=== PATIENT | female | born 1965 | race Caucasian/White ===

== ENCOUNTER 2016-07-17 19:45 | Emergency (ER) | payer BC ==
[2016-07-17 20:25] VITALS: BP 141/76
[2016-07-17] MEDS ORDERED: Azithromycin TAB* 250 MG PO ONE (20:53)
[2016-07-17] MEDS ORDERED: Benzonatate CAP* 100 MG PO ONE (20:54)
--- NOTE | 2016-07-17 21:06 | UC ---
Respiratory Complaint HPI - HPI Summary HPI Summary: 51 YO FEMALE WITH COUGH X 5-7 DAYS NO RUNNY NOSE NO F/C - History of Current Complaint Chief Complaint: UCRespiratory Stated Complaint: COUGH Time Seen by Provider: 07/17/16 20:48 Hx Last Menstrual Period: 3 WKS AGO Onset/Duration: Lasting Days Timing: Constant Severity Initially: Moderate Severity Currently: Moderate Pain Intensity: 2 Pain Scale Used: 0-10 Numeric Character: Cough: Nonproductive Aggravating Factors: Exertion, Deep Breaths Alleviating Factors: Nothing - Allergies/Home Medications Allergies/Adverse Reactions: Allergies Allergy/AdvReac Type Severity Reaction Status Date / Time Ampicillin Allergy Intermediate Hives Verified 07/17/16 20:18 Cephalexin AdvReac Joint Pain Verified 07/17/16 20:18 Home Medications: Home Medications Escitalopram (NF) [Lexapro (NF)] 1 tab DAILY 07/17/16 [History Confirmed ] amLODIPine TAB* [Norvasc 5 mg TAB*] 10 mg PO DAILY 07/17/16 [History Confirmed 07/17/16] PMH/Surg Hx/FS Hx/Imm Hx Previously Healthy: Yes Endocrine History Of: Denies: Diabetes, Thyroid Disease, Hyperthyroidism, Hypothyroidism, Dyslipidemia Cardiovascular History Of: Reports: Hypertension Denies: Cardiac Disorders, Pacemaker/ICD, Myocardial Infarction, Congestive Heart Failure, Atrial Fibrillation, Deep Vein Thrombosis, Bleeding Disorders Respiratory History Of: Denies: COPD, Asthma, Bronchitis, Pneumonia, Pulmonary Embolism GI/ History Of: Denies: Gastroesophageal Reflux, Ulcer, Gastrointestinal Bleed, Gall Bladder Disease, Kidney Stones, Diverticulitis, Renal Disease, Urosepsis Neurological History Of: Denies: TIA, CVA, Dementia, Seizures, Migraine Psychological History Of: Reports: Anxiety Denies: Depression, Bipolar Disorder, Schizophrenia, Post Traumatic Stress Disorder Cancer History Of: Denies: Lung Cancer, Colorectal Cancer, Breast Cancer, Prostate Cancer, Cervical Cancer Other History Of: Negative For: HIV, Hepatitis B, Hepatitis C - Surgical History Surgical History: Yes Surgery Procedure, Year, and Place: c-sections x 3, R carpel tunnel, L knee - Family History Known Family History: Positive: Cardiac Disease, Hypertension, Diabetes Negative: Renal Disease, Blood Disorder - Social History Alcohol Use: Weekly Alcohol Amount: 2-3 daily Substance Use Type: None Smoking Status (MU): Never Smoked Tobacco - Immunization History Most Recent Influenza Vaccination: 2016 Most Recent Tetanus Shot: UTD Most Recent Pneumonia Vaccination: N/A Review of Systems Constitutional: Negative Skin: Negative Eyes: Negative ENT: Negative Respiratory: Cough Cardiovascular: Negative Gastrointestinal: Negative Genitourinary: Negative Motor: Negative Neurovascular: Negative Musculoskeletal: Negative Neurological: Negative Psychological: Negative All Other Systems Reviewed And Are Negative: Yes Physical Exam Triage Information Reviewed: Yes Appearance: Well-Appearing, No Pain Distress Vital Signs: Initial Vital Signs Temp 98.3 F 07/17/16 20:23 Pulse 76 07/17/16 20:23 Resp 18 07/17/16 20:23 BP 141/76 07/17/16 20:23 Pulse Ox 99 07/17/16 20:23 Vital Signs Reviewed: Yes Eyes: Positive: Conjunctiva Clear ENT: Positive: Hearing grossly normal, Pharynx normal, TMs normal. Negative: Nasal congestion, Nasal drainage, Tonsillar exudate, Trismus, Muffled/hoarse voice Dental: Negative: Abscess @ Neck: Positive: Supple, Nontender, No Lymphadenopathy Respiratory: Positive: No respiratory distress, No accessory muscle use, Wheezing - WITH FORCED EXPIRATION Cardiovascular: Positive: RRR, No Murmur Abdomen Description: Positive: Nontender, No Organomegaly Musculoskeletal: Positive: ROM Intact, No Edema Neurological: Positive: Alert Psychological Exam: Normal Skin Exam: Normal UC Diagnostic Evaluation - Laboratory O2 Sat by Pulse Oximetry: 99 - NORMAL/NOT HYPOXIC Respiratory Course/Dx - Differential Dx/Diagnosis Provider Diagnoses: ACUTE BRONCHITIS Discharge - Discharge Plan Condition: Stable Disposition: HOME Prescriptions: Azithromycin TAB* [Zithromax TAB (Z-YASMINE) 250 mg #6 tabs] 250 mg PO DAILY #4 tab Benzonatate CAP* [Tessalon 100 MG CAP*] 100 - 200 mg PO TID PRN #28 cap PRN Reason: Cough Patient Education Materials: Acute Bronchitis (ED) Referrals: Jaycee Musa MD [Primary Care Provider] - 5 Days (IF NOT BETTER I SUGGEST A BP RECHECK IN 5-10 DAYS)
== END 2016-07-17 21:11 | disposition home or self-care (01) ==
LOC: UCCORT 19:45
DX: J20.9 Acute bronchitis, unspecified (principal); Z88.1 Allergy status to other antibiotic agents; I10 Essential (primary) hypertension
CPT/HCPCS: 99212; A9270-GY; G0463

== ENCOUNTER 2019-07-25 15:41 | Emergency (ER) | payer BC ==
[2019-07-25 16:05] VITALS: BP 136/87
--- NOTE | 2019-07-25 16:21 | UC ---
Hand/Wrist HPI - HPI Summary HPI Summary: pt c/o sudden onset of right wrist pain, swelling, erythema that began two days ago. Pt states swelling, and pain have been worsening since onset. Pt reports that she ate clam chowder and has had a glass of wine each night. Denies injury - History Of Current Complaint Chief Complaint: UCUpperExtremity Stated Complaint: RIGHT ARM SWELLING Time Seen by Provider: 07/25/19 16:09 Hx Obtained From: Patient Hx Last Menstrual Period: tubal ?: No Onset/Duration: Sudden Onset, Still Present, Worse Since Severity Initially: Mild Severity Currently: Moderate Pain Intensity: 9 Character Of Pain: Sharp, Dull, Aching, Stiffness Aggravating Factor(s): Movement, Lifting, Flexion, Extension Alleviating Factor(s): Nothing Associated Signs And Symptoms: Positive: Swelling, Redness Related History: Dominant Hand Right - Risk Factors Compartment Syndrome Risk Factors: Pain - Allergies/Home Medications Allergies/Adverse Reactions: Allergies Allergy/AdvReac Type Severity Reaction Status Date / Time MS Ampicillin [Ampicillin] Allergy Intermediate Hives Verified 07/17/16 20:18 MS Cephalexin [Cephalexin] AdvReac Joint Pain Verified 07/17/16 20:18 Home Medications: Home Medications Hctz 25 mg PO DAILY 12/12/14 [History Confirmed 07/25/19] Potassium Chloride [Klor-Con 8] 20 meq PO DAILY 12/12/14 [History Confirmed ] Ibuprofen TAB* [Advil TAB*] 600 mg PO BID PRN 08/26/15 [History Confirmed ] Escitalopram * [Lexapro 10 mg (NF)] 1 tab DAILY 07/17/16 [History Confirmed ] amLODIPine TAB* [Norvasc 5 mg TAB*] 10 mg PO DAILY 07/17/16 [History Confirmed 07/25/19] Colchicine* [Colcrys*] 0.6 mg PO DAILY #3 tab 07/25/19 [Rx] Naproxen Sodium [Aleve] 2 tab PO ONCE 07/25/19 [History Confirmed 07/25/19] PMH/Surg Hx/FS Hx/Imm Hx Previously Healthy: Yes Cardiovascular History: Hypertension Other History Of: Negative For: HIV, Hepatitis B, Hepatitis C - Surgical History Surgical History: Yes Surgery Procedure, Year, and Place: c-sections x 3, R carpel tunnel, L knee, tubal - Family History Known Family History: Positive: Cardiac Disease, Hypertension, Diabetes Negative: Renal Disease, Blood Disorder - Social History Occupation: Works From/At Home Lives: With Family Alcohol Use: Occasionally Alcohol Amount: 2-3 daily Substance Use Type: None Smoking Status (MU): Never Smoked Tobacco Have You Smoked in the Last Year: No - Immunization History Most Recent Influenza Vaccination: 2015 Most Recent Tetanus Shot: UTD Most Recent Pneumonia Vaccination: N/A Vaccination Up to Date: Yes Review of Systems All Other Systems Reviewed And Are Negative: Yes Constitutional: Positive: Negative Skin: Positive: Other - mild erythema rigth wrist medial aspect Eyes: Positive: Negative ENT: Positive: Negative Respiratory: Positive: Negative Cardiovascular: Positive: Negative Gastrointestinal: Positive: Negative Genitourinary: Positive: Negative Motor: Positive: Decreased ROM - right wrist due to pain Musculoskeletal: Positive: Arthralgia - right wrist, Edema - right wrist, non pitting, mild, Myalgia - right wrist, Neurological/Mental Status: Positive: Negative Psychological: Positive: Negative Is Patient Immunocompromised?: No Physical Exam Triage Information Reviewed: Yes Appearance: Pain Distress Vital Signs: Initial Vital Signs Temp 97.8 F 07/25/19 15:58 Pulse 79 07/25/19 15:58 Resp 17 07/25/19 15:58 BP 136/87 07/25/19 15:58 Pulse Ox 98 07/25/19 15:58 Vital Signs Reviewed: Yes Eye Exam: Normal ENT Exam: Normal Neck exam: Normal Respiratory: Positive: No respiratory distress Musculoskeletal: Positive: ROM Limited @ - right wrist non pitting mild edema Neurological Exam: Normal Psychological Exam: Normal Skin Exam: Other - mild erythema, more prominent medial aspect, but generalized Hand/Wrist Course/Dx - Differential Dx/Diagnosis Differential Diagnosis/HQI/PQRI: Cellulitis, Gout, Infection, Other - DVT Provider Diagnosis: Gout Discharge ED - Sign-Out/Discharge Documenting (check all that apply): Patient Departure All imaging exams completed and their final reports reviewed: No Studies - Discharge Plan Condition: Stable Disposition: HOME Prescriptions: Colchicine* [Colcrys*] 0.6 mg PO DAILY #3 tab Patient Education Materials: Low Purine Diet (ED), Gout (ED) Referrals: Jaycee Musa MD [Primary Care Provider] - If Needed - Billing Disposition and Condition Condition: STABLE Disposition: Home
== END 2019-07-25 16:30 | disposition home or self-care (01) ==
LOC: UCCORT 15:41
DX: M10.031 Idiopathic gout, right wrist (principal); I10 Essential (primary) hypertension; Z79.899 Other long term (current) drug therapy; Z88.1 Allergy status to other antibiotic agents; Z88.0 Allergy status to penicillin
CPT/HCPCS: 99202; G0463